=== PATIENT | female | born 1970 | race Caucasian/White ===

== ENCOUNTER 2017-06-05 12:59 | Emergency (ER) | payer OTHER ==
[2017-06-05 14:09] VITALS: BP 127/82
--- NOTE | 2017-06-05 14:37 | RAD ---
Indication: Right hand pain. 4 views of the right hand are reviewed. There is no fracture or dislocation. No other bone or joint abnormality is noted. IMPRESSION: No fracture of the right hand is noted.
--- NOTE | 2017-06-05 14:38 | UC ---
Bite Injury/Animal HPI - HPI Summary HPI Summary: Pt presents with right hand pain and dog bite to right leg. She tells me that last night she was breaking up a fight between two of her dogs and they bit her. In the process her right hand was stepped on and thrashed around. She did not seek medical treatment at that time. She bandaged the dog bite. This morning she woke up with worsening right hand pain. Has been taking ibuprofen with good relief of pain. Denies fever, chills, drainage, warmth, or streaking. - History of Current Complaint Chief Complaint: UCUpperExtremity Stated Complaint: HAND INJURY Time Seen by Provider: 06/05/17 14:37 Hx Obtained From: Patient Severity Currently: Severe Severity Initially: Severe Pain Intensity: 9 Pain Scale Used: 0-10 Numeric Onset/Duration: Sudden Onset Type of Bite: Animal Has Animal Been Immunized?: Yes Character: Puncture - Allergies/Home Medications Allergies/Adverse Reactions: Allergies Allergy/AdvReac Type Severity Reaction Status Date / Time No Known Allergies Allergy Verified 06/05/17 14:09 PMH/Surg Hx/FS Hx/Imm Hx Previously Healthy: Yes Respiratory History: Asthma - Surgical History Surgical History: Yes Surgery Procedure, Year, and Place: ECTOPIC , C SECTION, 2 HEMOPORTS, ADHESIONS FROM , SKIN CANCERS, HYSTERECTOMY - Family History Known Family History: Positive: None - Social History Occupation: Employed Full-time Lives: With Family Alcohol Use: Occasionally Substance Use Type: None Smoking Status (MU): Former Smoker Review of Systems Constitutional: Negative Skin: Other - Bite to right leg Respiratory: Negative Cardiovascular: Negative Gastrointestinal: Negative Genitourinary: Negative Motor: Negative Neurovascular: Negative Musculoskeletal: Other: - Right hand pain Neurological: Negative Psychological: Negative All Other Systems Reviewed And Are Negative: Yes Physical Exam Triage Information Reviewed: Yes Appearance: Well-Appearing, No Pain Distress, Well-Nourished Vital Signs: Initial Vital Signs Temp 98.3 F 06/05/17 14:00 Pulse 71 06/05/17 14:00 Resp 18 06/05/17 14:00 BP 127/82 06/05/17 14:00 Pulse Ox 100 06/05/17 14:00 Vital Signs Reviewed: Yes Neck: Positive: Supple, Nontender, No Lymphadenopathy Respiratory: Positive: Lungs clear, Normal breath sounds, No respiratory distress, No accessory muscle use Cardiovascular: Positive: RRR, No Murmur, Pulses Normal - Right radial and ulnar Musculoskeletal: Positive: Strength Limited @ - Right hand due to pain, ROM Limited @ - Right hand and all fingers. Unable to cement finisher or oppose with significant pain., Edema @ - Right hand generalized - moderate, Other: - TTP right hand generalized - worse over 3rd and 4th MCP and digits. No snuffbox tenderness. Right knee, ankle, and foot FROM and 5/5 strength. Neurological: Positive: Alert, Other: - Sensations intact right hand and all fingers. Sensations intact right LE Psychological: Positive: Age Appropriate Behavior Skin: Positive: Other - Four puncture wounds to right anterolateral thigh. Mild edema. No erythema, drainage, or bleeding. No FB. Bite Injury Course/Dx - Course Course Of Treatment: Right hand: IMPRESSION: No fracture of the right hand is noted. Suspect right hand contusion, but given degree of edema and decreased ROM - will have her f/u with orthopedics. Her right leg dog bites were dressed and she will be placed on Augmentin for infection potential. - Differential Dx/Diagnosis Provider Diagnoses: Right hand contusion. Right leg dog bite Discharge - Discharge Plan Condition: Stable Disposition: HOME Prescriptions: Amoxicillin/Clavulanate TAB* [Augmentin TAB 875*] 875 mg PO BID #20 tab Patient Education Materials: Animal Bite (ED), Contusion in Adults (ED) Referrals: Martin East MD [Primary Care Provider] - Lynsey Hunter MD [Medical Doctor] - As Soon As Possible Additional Instructions: If you develop a fever, shortness of breath, chest pain, new or worsening symptoms - please call your PCP or go to the ED. 1) Please rest, ice, and elevate your hand as much as possible over the next 24- 48hours. 2) May take ibuprofen 600mg every 6-8 hours as needed for pain. 3) Please call Dr. Hunter at the number below to schedule a follow up appointment regarding your hand.
== END 2017-06-05 15:40 | disposition home or self-care (01) ==
LOC: UCEAST 12:59
DX: S60.221A Contusion of right hand, initial encounter (principal); S71.131A Puncture wound without foreign body, right thigh, initial encounter; W54.8XXA Other contact with dog, initial encounter; W54.0XXA Bitten by dog, initial encounter; Y93.89 Activity, other specified; Y92.009 Unspecified place in unspecified non-institutional (private) residence as the place of occurrence of the external cause; J45.909 Unspecified asthma, uncomplicated; Z87.891 Personal history of nicotine dependence
CPT/HCPCS: 99212; G0463

== ENCOUNTER 2017-10-06 06:34 | Day surgery (SDC) | payer OTHER ==
[~2017-10-06 06:34] MED LIST: Buffered Lidocaine 0.9% SYRIN* 5 ML/SYR SYRINGE INTRADERM ONE
[2017-10-06] MEDS ORDERED: Bupivacaine 0.5% SDV PF* 30ML VIAL ONE (07:08)
[2017-10-06] MEDS ORDERED: Midazolam* 1 MG/ML 2 ML VIAL (2 MG) ONE (07:22)
[2017-10-06] MEDS ORDERED: Lidocaine 2% PF * 5 ML VIAL ONE (07:37)
[2017-10-06] MEDS ORDERED: Propofol* 10 MG/ML 20 ML BTL IV PUSH ONE (07:37)
[2017-10-06] MEDS ORDERED: Naloxone* 0.4 MG/ML 1 ML VIAL IV PRN (07:51)
[2017-10-06 08:36] VITALS: BP 126/82
--- NOTE | 2017-10-11 03:47 | OP ---
DATE OF OPERATION: 10/06/17 [facility] DATE OF : 74 SURGEON: Hakan Wong MD PODIATRY ASSISTANT: ELDER Parnell ANESTHESIOLOGIST: Dr. Edwards. ANESTHESIA: Local MAC. PRE-OP DIAGNOSIS: Left long finger mucous cyst. POST-OP DIAGNOSIS: Left long finger mucous cyst. OPERATIVE PROCEDURE: Excision of left middle finger mucous cyst. INDICATIONS: Ada is 47 years old. She has had this cyst now for quite some time. We talked about the risks and benefits of excising it including the risk of recurrence, stiffness and wound problems. She wants to proceed with surgery. ESTIMATED BLOOD LOSS: 2 mL. COMPLICATIONS: None. FINDINGS: See above and below. DESCRIPTION OF PROCEDURE: Ada was seen in the operating holding area. The correct side, site, and procedure were identified. We came back to the operating room where we had a time-out and then I performed a digital block. The arm was then prepped and draped in usual fashion. A time-out performed. I began by making a longitudinal incision over the dorsal radial mid axial line. This was T'd back transversely over the DIP joint taking care to preserve the terminal extensor tendon. Full-thickness flaps were raised off the cyst with a Holy Cross blade the dermis from the cyst. The cyst was traced back to the radial side of the DIP joint between the terminal extensor tendon and the collateral ligament. The stalk of the cyst together the capsule there was excised with a rongeur. I then cauterized the area with a Bovie. There was a bit of involved tissue underneath the terminal extensor tendon and this was removed with a rongeur and then the area was cauterized. At this point , everything was looking good. I let the skin flaps back and skin was closed with 4-0 nylon suture. The wounds were dressed with Xeroform, some gauze and Coban. The finger tourniquet had been placed prior to beginning the procedure. This was removed after the skin was closed and the finger pinked up immediately. After dressings were on, she was taken to recovery room in stable condition. [id number]/CPS #: [id number] MTDD
== END 2017-10-06 08:31 | disposition home or self-care (01) ==
LOC: OREAST 06:34
PROVIDERS: ATTEND Orthopaedic Surgery Hand Surgery
DX: L72.0 Epidermal cyst (principal); Z85.71 Personal history of Hodgkin lymphoma; Z68.33 Body mass index [BMI] 33.0-33.9, adult; J45.909 Unspecified asthma, uncomplicated; D64.9 Anemia, unspecified; F41.9 Anxiety disorder, unspecified; Z86.711 Personal history of pulmonary embolism
CPT/HCPCS: 88304; J2250; J2704

== ENCOUNTER 2019-03-06 11:40 | Emergency (ER) | payer OTHER ==
[2019-03-06] MEDS ORDERED: Famotidine IV* 10 MG/ML 2 ML (20 mg) IV SLOW PU ONE (12:05)
[2019-03-06] MEDS ORDERED: NS 0.9% 1000 ML** 1,000 ML IV ONE (12:05)
--- NOTE | 2019-03-06 12:11 | ED ---
GI/ HPI - HPI Summary HPI Summary: Patient is a 48 y/o F presenting to the ED for a chief complaint of bright red blood in the stool that began on 03/06/19. She was recommended to be seen at [facility] after labs one week ago showed low blood counts. At around 05:00, the patient noticed bright red blood after having a bowel movement. She had another bowel movement since this episode that also had bright red blood. She describes the blood as if she had eaten beets. She also admits fatigue, neck pain that radiates down the left shoulder, and numbness in the bilateral arms. She also reports LLQ abdominal pain for the last 2 weeks. She has a history of ovarian cysts which she states is similar to the abdominal pain she is now experiencing. Patient denies any aggravating or alleviating factors. PMHx is significant for non-Hodgkins lymphoma, in remission, for which she sees Dr. East. She has an appointment with Dr. East on 03/07/19. Patient also admits taking hydrocodone daily for shoulder pain for the last 1 years as well as Naprosyn daily for the same period of time. PSHx is significant for hysterectomy. She last had a colonoscopy and endoscopy several years ago. Patient is a former smoker and drinks 4-5 glasses of wine a week, but denies drug use. Medications reviewed. Allergies noted. - History of Current Complaint Chief Complaint: EDGIBleed Time Seen by Provider: 03/06/19 11:54 Stated Complaint: POSS. INTERNAL BLEED PER PT Hx Obtained From: Patient Onset/Duration: Started Days Ago, Atraumatic, Still Present Timing: Intermittent, Lasting Days Severity: Moderate Current Severity: Moderate Vaginal Bleeding Description: Bright Red Pain Intensity: 4 Location of Pain: LLQ Associated Signs and Symptoms: Positive: Abdominal Pain - LLQ Aggravating Factor(s): Nothing Alleviating Factor(s): Nothing - Allergy/Home Medications Allergies/Adverse Reactions: Allergies Allergy/AdvReac Type Severity Reaction Status Date / Time Adhesive Tape Allergy redness Verified 03/06/19 12:10 [Tegaderm Dressing] Home Medications: Home Medications Ibuprofen/Pseudoephedrine HCl [Advil Cold-Sinus Liqui-Gels] 1 each PO DAILY PRN 03/06/19 [History Confirmed 03/06/19] PMH/Surg Hx/FS Hx/Imm Hx Previously Healthy: Yes Endocrine/Hematology History: Reports: Hx Anemia - from chemo Cardiovascular History: Denies: Hx Hypercholesterolemia, Hx Hypertension, Other Cardiovascular Problems/Disorders Respiratory History: Denies: Other Respiratory Problems/Disorders GI History: Denies: Other GI Disorders Sensory History: Reports: Hx Contacts or Glasses - glasses and contacts Denies: Hx Legally Blind, Hx Deafness, Hx Hearing Aid Opthamlomology History: Reports: Hx Contacts or Glasses - glasses and contacts Denies: Hx Legally Blind EENT History: Denies: Hx Deafness Neurological History: Denies: Other Neuro Impairments/Disorders - Cancer History Hx Chemotherapy: Yes - HODGKINS Hx Radiation Therapy: No - Surgical History Surgical History: Yes Surgery Procedure, Year, and Place: ECTOPIC ,. C SECTION,1990. 2 HEMOPORTS, 2005. ADHESIONS FROM ,, 1993. SKIN CANCERS,. HYSTERECTOMY , 2007, [facility] Hx Anesthesia Reactions: No Infectious Disease History: No Infectious Disease History: Reports: Hx Shingles Denies: Traveled Outside the [place] in Last 30 Days - Family History Known Family History: Negative: Cardiac Disease, Hypertension, Diabetes - Social History Occupation: Employed Full-time Lives: With Family Alcohol Use: Daily Alcohol Amount: 1 per day Hx Substance Use: No Substance Use Type: Reports: None Hx Tobacco Use: Yes Smoking Status (MU): Former Smoker Amount Used/How Often: 1/2 pack a day for 30 yrs Review of Systems Positive: Fatigue Positive: Abdominal Pain - LLQ, Other - Positive bright red blood in stool Positive: Arthralgia - Positive shoulder pain, Myalgia - Positive neck pain that radiates down left shoulder Positive: Numbness - Bilateral arms All Other Systems Reviewed And Are Negative: Yes Physical Exam - Summary Physical Exam Summary: Constitutional: Well-developed, Well-nourished, Alert. (-) Distressed Skin: Warm, Dry HENT: Normocephalic; Atraumatic Eyes: Conjunctiva normal Neck: Musculoskeletal ROM normal neck. (-) JVD, (-) Stridor, (-) Tracheal deviation Cardio: Rhythm regular, rate normal, Heart sounds normal; Intact distal pulses; Radial pulses are 2+ and symmetric. (-) Murmur Pulmonary/Chest wall: Effort normal. (-) Respiratory distress, (-) Wheezes, (-) Rales Abd: Soft, (-) Distension, (-) Guarding, (-) Rebound. LLQ and RLQ tenderness. Musculoskeletal: (-) Edema Lymph: (-) Cervical adenopathy Neuro: Alert, Oriented x3 Psych: Mood and affect Normal Rectal: brown stool with no hemorrhoid or fissure. Triage Information Reviewed: Yes Vital Signs On Initial Exam: Initial Vitals Temp Pulse Resp BP Pulse Ox 98.7 F 86 18 131/88 100 03/06/19 11:45 03/06/19 11:45 03/06/19 11:45 03/06/19 11:45 03/06/19 11:45 Vital Signs Reviewed: Yes Procedures - Sedation Patient Received Moderate/Deep Sedation with Procedure: No Diagnostics - Vital Signs Vital Signs Temp Pulse Resp BP Pulse Ox 03/06/19 11:45 98.7 F 86 18 131/88 100 - Laboratory Result Diagrams: 03/06/19 12:17 03/06/19 12:17 Lab Statement: Any lab studies that have been ordered have been reviewed, and results considered in the medical decision making process. - CT Abdomen/Pelvis CT CT Interpretation Completed By: Radiologist Summary of CT Findings: Abdomen/Pelvis CT IMPRESSION: 1. NO DEFINITE ETIOLOGY FOR ABDOMINAL PAIN/GI BLEED. RECOMMEND CORRELATION WITH COLONOSCOPY. SPECIFICALLY, THERE IS NO EVIDENCE OF DIVERTICULITIS. FEW IF ANY COLONIC DIVERTICULA ARE IDENTIFIED. 2. A 1.7 CM CYSTIC RIGHT ADNEXAL STRUCTURE IS SEEN IN CLOSE PROXIMITY TO THE OVARY AND LOOPS OF BOWEL (SEE ANNOTATED IMAGES). RECOMMEND FURTHER CHARACTERIZATION BY PELVIC ULTRASOUND. IF COLONOSCOPY AND ULTRASOUND ARE UNREMARKABLE, AND MECKEL'S SCAN COULD BE CONSIDERED. 3. BARIATRIC SURGERY. Reviewed by Dr. Delgado. GIGU Course/Dx - Course Course Of Treatment: Patient is here 2 episodes of red colored stool. Upon arrival, patient is overall well-appearing but does have left lower quadrant and right lower quadrant tenderness. Patient had a SHELDON which showed Brown stool which was guaiac negative. Patient had a CBC which showed a hemoglobin of 10 which is improved for her her her as her last one was 9. Patient a CT scan which showed no acute abnormality. Patient's follow-up with Dr. Álvarez tomorrow. - Diagnoses Provider Diagnoses: LLQ pain, Rectal bleeding, Thrombocytosis, Anemia Discharge ED - Sign-Out/Discharge Documenting (check all that apply): Patient Departure - Discharge - Discharge Plan Condition: Stable Disposition: HOME Patient Education Materials: Rectal Bleeding (ED) Referrals: Martin East MD [Primary Care Provider] - Tejal Álvarez MD [Medical Doctor] - Additional Instructions: PLEASE RETURN TO EMERGENCY DEPARTMENT FOR ANY NEW OR WORSENING SYMPTOMS OR IF YOU FEEL LIKE YOU ARE GOING TO FAINT OR HAVE WORSENING PAIN. Please follow up with your primary care physician. Please make all follow-ups in 1-3 days unless I advise you otherwise. Keep your appointment with Dr. Álvarez. - Billing Disposition and Condition Condition: STABLE Disposition: Home - Attestation Statements Document Initiated by Astrid: Yes Documenting Scribe: Marcie Kaba Provider For Whom Astrid is Documenting (Include Credential): Kevin Delgado MD Scribe Attestation: Marcie Ochoa, scribed for Kevin Delgado MD on 03/06/19 at 2114. Scribe Documentation Reviewed: Yes Provider Attestation: The documentation as recorded by the Marcie fagan accurately reflects the service I personally performed and the decisions made by , Kevin Delgado MD Status of Scribe Document: Viewed
[2019-03-06 13:02] LABS: INR 0.94 (0.82-1.09)
[2019-03-06 13:08] LABS: Albumin 4.6 g/dL (3.2-5.2); Albumin/Globulin Ratio 1.6 (1-3); BUN/Creatinine Ratio 22.2 (8-20); Calcium 9.7 mg/dL (8.6-10.3); EGFR African American 105.5 (>60); EGFR Non-African American 87.2 (>60); Globulin 2.8 g/dL (2-4); Potassium 3.9 mmol/L (3.5-5.0); Total Bilirubin 0.3 mg/dL (0.2-1.0); Total Protein 7.4 g/dL (6.4-8.9)
[2019-03-06] MEDS ORDERED: Iohexol 300* (CONTRAST) 10 ML SDV IV ONE (13:17)
[2019-03-06 14:01] LABS: ABS Eosinophils 0.2 10^3/ul (0-0.6); ABS Lymphocytes 2.3 10^3/ul (1.0-4.8); ABS Monocytes 0.5 10^3/ul (0-0.8); ABS Neutrophils 5.9 10^3/ul (1.5-7.7); Eosinophil % 2.3 %; Hematocrit 32 % (35-47); Mean Corpuscular HGB Conc 31 g/dL (31-36); Mean Corpuscular Hemoglobin 23 pg (27-31); Mean Corpuscular Volume 74 fL (80-97); Mean Platelet Volume 7.4 fL (7.4-10.4); Platelet Count 526 10^3/uL (150-450); Red Blood Count 4.31 10^6 /uL (3.70-4.87); Red Cell Distribution Width 18 % (10-15)
[2019-03-06 15:30] VITALS: BP 137/97
== END 2019-03-06 15:37 | disposition home or self-care (01) ==
LOC: ED 11:40
DX: K62.5 Hemorrhage of anus and rectum (principal); R10.32 Left lower quadrant pain; D47.3 Essential (hemorrhagic) thrombocythemia; D64.9 Anemia, unspecified; Z87.891 Personal history of nicotine dependence
CPT/HCPCS: 36415; 74177; 80053; 82272; 83605; 85025; 85610; 86850; 86900; 86901; 96361; 96374; 99283